=== PATIENT | male | born 1995 | race Caucasian/White ===

== ENCOUNTER 2016-09-08 07:28 | Emergency (ER) | payer OTHER ==
--- NOTE | ~2016-09-08 | EKG ---
PATIENT: SHANITA JARRETT UNIT #: [id number] Ventricular Rate: 88 BPM Atrial Rate: 88 BPM P-R Interval: 130 ms QRS Duration: 96 ms Q-T Interval: 346 ms QTC Calculation(Bezet): 418 ms P [place]: 65 degrees Calculated R [place]: 136 degrees Calculated T [place]: 49 degrees Diagnosis Line: Normal sinus rhythm with sinus arrhythmia Diagnosis Line: Right axis deviation Diagnosis Line: Abnormal ECG Diagnosis Line: Diagnosis Line: Confirmed by TUYET SHAW MD ([id number]) on Diagnosis Line: 09/08/2016 10:16:01 PM INTERPRETING MD: SOHEILA
[2016-09-08 08:01] LABS: BASOPHIL# 0.1 X10e3 (0-0.3); BASOPHIL% 0.9 % (0-2.5); EOSINOPHIL# 0.2 X10e3 (0-0.7); EOSINOPHIL% 1.2 % (0.0-7.0); HEMATOCRIT 50.3 % (38.0-50.0); HEMOGLOBIN 17.4 gm/dL (13.0-16.0); LYMPHOCYTE# 3.1 X10e3 (1.0-3.5); LYMPHOCYTE% 20.7 % (17.0-45.0); MEAN CELL VOLUME 89.2 FL (83-96); MEAN CORPUSCULAR HEMOGLOBIN 30.7 PG (28-34); MEAN CORPUSCULAR HGB CONC 34.5 g/dL (30-36); MEAN PLATELET VOLUME 9.5 FL (6.5-11.5); MONOCYTE# 0.9 X10e3 (0-1.0); MONOCYTE% 5.9 % (3.0-12.0); NEUTROPHIL# 10.6 X10e3 (1.5-7.1); NEUTROPHIL% 71.3 % (40-75); PLATELET COUNT 279 X10e3 (140-420); RED BLOOD COUNT 5.64 X10e (3.90-5.60); WHITE BLOOD COUNT 14.8 X10e3 (4.0-10.5)
[2016-09-08 08:05] LABS: DIFF IND NO
[2016-09-08 08:32] LABS: ALBUMIN SERUM 4.7 g/dL (3.5-5.0); BILIRUBIN,TOTAL 0.9 mg/dL (0.2-2.0); BUN/CREATININE RATIO 11.25; CALCIUM SERUM 9.5 mg/dL (8.4-10.2); CREATININE SERUM 0.8 mg/dL (0.6-1.4); GLOM FILT RATE Estimated 126.9 mL/min (>60); POTASSIUM 3.5 mmol/L (3.5-5.1); PROTEIN TOTAL SERUM 7.8 g/dL (6.0-8.3)
[2016-09-08 08:55] LABS: AMPHETAMINE NEG (NEG); BARBITURATES NEG (NEG); BENZODIAZEPINES NEG (NEG); COCAINE NEG (NEG); MARIJUANA NEG (NEG); OPIATES NEG (NEG); TRICYCLIC ANTIDEPRESSANTS NEG (NEG); U METHADONE NEG (NEG)
== END 2016-09-08 13:30 ==
LOC: CED 07:28 → EDBD 07:28 → CED 08:50
PROVIDERS: Emergency Medicine
DX: T14.91 Suicide attempt (principal); F10.129 Alcohol abuse with intoxication, unspecified; F32.9 Major depressive disorder, single episode, unspecified; F17.200 Nicotine dependence, unspecified, uncomplicated
CPT/HCPCS: 36415; 80053; 80307; 85025; 93005; 99283; 99285; G0480

== ENCOUNTER 2016-09-08 09:25 | Inpatient (IN) | payer OTHER ==
--- NOTE | ~2016-09-08 | HP ---
Unit #: [id number] #: [id number] Patient: MICHAEL HASSAN [id number] [place] [address] [id number] MR#: [id number] NAME: MICHAEL HASSAN ROOM: P263 Age: 21 Sex: M Admission Date: 09/08/2016 : 1995 Attending Physician: Vinny Araujo M.D. Admitting Physician: Vinny Araujo M.D. Primary Care Physician: Primary Care Physician No HISTORY AND PHYSICAL HISTORY OF PRESENT ILLNESS Michael is a 21-year-old male admitted to [address] [place] [address] because of his depression and after an attempted suicide with an overdose of amoxicillin and beer. PAST MEDICAL HISTORY Nothing significant. PAST SURGICAL HISTORY Nothing reported. ALLERGIES No known drug allergies. SOCIAL HISTORY Smokes 1 pack per day. Drinks alcohol on occasion. Denies illicit drug use. FAMILY HISTORY Medically noncontributory. REVIEW OF SYSTEMS CONSTITUTIONAL: No fever or chills. HEENT: Denies any sore throat, ear pain or runny nose. CARDIOVASCULAR: Denies chest pain, irregular heart rhythm or palpitations. CHEST: Denies shortness of breath or cough. No hemoptysis. GASTROINTESTINAL: Denies nausea, vomiting, diarrhea or chronic constipation. ENDOCRINE: Denies history of increased thirst or urination. No recent significant weight loss or gain. GENITOURINARY: Denies dysuria, frequency, or hematuria. SKIN: Denies any rashes. HEMATOLOGIC: Denies history of increased bleeding or bruising. MUSCULOSKELETAL: Denies any hot, swollen joints. No generalized muscle pain. NEUROLOGIC: Denies problems with vision or speech. No frequent, severe headaches. No numbness, tingling or weakness in any extremities. Denies loss of bladder or bowel control. CURRENT MEDICATIONS No orders received at the time of this dictation. PHYSICAL EXAMINATION Unit #: [id number] #: [id number] Patient: MICHAEL HASSAN GENERAL: Alert, well-nourished, in no apparent distress. VITAL SIGNS: Blood pressure 124/78, heart rate 88, respirations 16, temperature 98.6. WEIGHT: 128. HEIGHT: 5 feet 6 inches. SKIN: Warm and dry without rash or lesion. HEENT: Normocephalic. TMs not viewed. Oral and nasal passages clear. Conjunctivae clear. PERRLA. EOMs intact. NECK: Supple without lymphadenopathy or thyromegaly. HEART: Regular rate and rhythm without murmur. LUNGS: Clear. ABDOMEN: Soft, nontender. : Not done. EXTREMITIES: No evidence of cyanosis, clubbing or edema. Moves all without focal deficit. NEUROLOGICAL: Grossly within normal limits. Cranial Nerves: II: Visual ibarra are intact. III, IV AND : Extraocular movements are intact. Pupils are equal, round and reactive to light. V: Facial sensation is grossly normal. VII: Facial movements and expression are normal. VIII: Auditory acuity grossly intact. IX, X: Uvula is midline. Phonation is normal. XI: Patient shrugs shoulders and turns head normally. XII: Tongue protrudes in the midline. Sensory and Motor Function: Sensory and motor sensation is grossly normal. Motor: moves all extremities well. Coordination: Gait is normal. Deep Tendon Reflexes: Intact. IMPRESSION Psychiatric admission. RECOMMENDATIONS PSYCHIATRIC: Per psychiatrist. MEDICAL: See no contraindications to participate in facility's activities. MEDICAL PROGNOSIS Good. MEDICAL CONDITION Stable. Dictated by... Jackie Smith P.A.-C. for Albina Mercer/estella TD: 09/08/2016 20:29 JOB #: [id number] Unit #: [id number] #: [id number] Patient: MICHAEL HASSAN HISTORY AND PHYSICAL Page 1 of 1 X Jackie Smith HISTORY AND PHYSICAL
== END 2016-09-09 12:10 | disposition home or self-care (01) | DRG 881 ==
LOC: P2L 14:16
DX: F32.9 Major depressive disorder, single episode, unspecified (principal); R45.851 Suicidal ideations; F17.210 Nicotine dependence, cigarettes, uncomplicated